=== PATIENT | male | born 1935 | race Caucasian/White ===

== ENCOUNTER → 2016-08-19 | Outpatient (CLI) | payer OTHER ==
[~2016-08-19] MED LIST: ASPI81TA28 PO; CLOP1TAB15 PO; COEN10CA5 PO; CRG125 PO; DOCU100C PO; FURO40TA3 PO; LEVO25TA5 PO; LISI2.5T5 PO; METO25TA56 PO; PANT40TA PO; SIMV10TA2 PO; SIMV20TA2 PO; WARF2TAB8 PO; WARF4TAB8 PO
[2016-08-19 13:27] LABS: BASO % 0.3 %; BASO ABS # 0.02 K/uL (0-0.2); COMPLETE YES; EOS % 2.3 %; HEMATOCRIT 40.3 % (42-52); IG% 0.3 %; LYMPH % 24.5 %; LYMPH ABS # 1.59 K/uL (1.2-3.4); MEAN CELL VOLUME 93.7 fL (80-100); MEAN CORPUSCULAR HEMOGLOBIN 31.2 pg (25-34); MEAN CORPUSCULAR HGB CONC 33.3 g/dl (32-36); MEAN PLATELET VOLUME 10.9 fL (7.4-10.4); MONO % 7.6 %; PLATELET COUNT 153 K/uL (130-400); WHITE BLOOD COUNT 6.49 K/uL (4.8-10.8)
[2016-08-19 13:50] LABS: ALB/GLOB RATIO 1.2 (0.9-2); ALKALINE PHOSPHATASE 87 U/L (45-117); ALT/SGPT 22 U/L (12-78); AST/SGOT 22 U/L (15-37); BLOOD UREA NITROGEN 14 mg/dl (7-18); BUN/CREATININE RATIO 16.8 (10-20); CALCIUM 8.2 mg/dl (8.5-10.1); CARBON DIOXIDE 26 mmol/L (21-32); CHLORIDE 108 mmol/L (98-107); CREATININE 0.85 mg/dl (0.60-1.40); GLUCOSE 99 mg/dl (70-99); HDL CHOLESTEROL 35 mg/dl; POTASSIUM 3.9 mmol/L (3.5-5.1); SODIUM 142 mmol/L (136-145)
[2016-08-19 14:17] LABS: CHOLESTEROL 152 mg/dl (0-200); CHOLESTEROL/HDL RATIO 4.3; LDL CHOLESTEROL CALCULATED 92 mg/dl; TRIGLYCERIDES 126 mg/dl (0-150); VERY LOW DENSITY LIPOPROT CALC 25 mg/dl
== END | disposition home or self-care (01) ==
LOC: C.LABMFLN 09:08
PROVIDERS: ATTEND Family Medicine
DX: I48.91 Unspecified atrial fibrillation (principal); E78.5 Hyperlipidemia, unspecified; E03.9 Hypothyroidism, unspecified

== ENCOUNTER 2016-10-17 08:26 | Emergency (ER) | payer OTHER ==
[~2016-10-17] VITALS: Ht 175.3 cm; Wt 80.6 kg
[~2016-10-17 08:26] MED LIST changes: -COEN10CA5 PO; -DOCU100C PO; -LEVO25TA5 PO; -METO25TA56 PO; -SIMV10TA2 PO; -WARF2TAB8 PO; -WARF4TAB8 PO
[2016-10-17 08:39] VITALS: TEMP 36.8; Ht 175.3 cm; Wt 80.6 kg
[2016-10-17 09:11] VITALS: O2SAT 98
[2016-10-17 09:22] LABS: BASO % 0.3 %; BASO ABS # 0.02 K/uL (0-0.2); COMPLETE YES; HEMATOCRIT 40.3 % (42-52); IG% 0.3 %; LYMPH % 20.9 %; LYMPH ABS # 1.33 K/uL (1.2-3.4); MEAN CELL VOLUME 91.8 fL (80-100); MEAN CORPUSCULAR HEMOGLOBIN 30.8 pg (25-34); MEAN CORPUSCULAR HGB CONC 33.5 g/dl (32-36); MEAN PLATELET VOLUME 10.8 fL (7.4-10.4); MONO % 8.3 %; NEUT % 68.2 %; PLATELET COUNT 137 K/uL (130-400); RED BLOOD COUNT 4.39 M/uL (4.7-6.1); WHITE BLOOD COUNT 6.37 K/uL (4.8-10.8)
[2016-10-17 09:36] LABS: INR 2.3 (0.9-1.1); PARTIAL THROMBOPLASTIN RATIO 1.4; PROTHROMBIN TIME (PATIENT) 25.7 SECONDS (9.0-12.0)
[2016-10-17 09:39] LABS: ALT/SGPT 21 U/L (12-78); BLOOD UREA NITROGEN 14 mg/dl (7-18); BUN/CREATININE RATIO 15.4 (10-20); CALCIUM 8.9 mg/dl (8.5-10.1); CARBON DIOXIDE 27 mmol/L (21-32); CHLORIDE 109 mmol/L (98-107); GLUCOSE 113 mg/dl (70-99); POTASSIUM 4.1 mmol/L (3.5-5.1); SODIUM 141 mmol/L (136-145)
[2016-10-17 09:44] LABS: ALKALINE PHOSPHATASE 88 U/L (45-117); AST/SGOT 21 U/L (15-37); CKMB/CK RATIO 2.1 (0-3.0)
--- NOTE | 2016-10-17 09:54 | DIAGNOSTIC IMAGING REPORT ---
CHEST ONE VIEW PORTABLE CLINICAL HISTORY: Fever. Chest pain. Sepsis. COMPARISON STUDY: Chest radiograph November 14, 2009. FINDINGS: There are median sternotomy wires, prosthetic cardiac valve and dual lead left subclavian pacer/AICD. There is a suspected cardiac stent. Moderate cardiomegaly is noted without evidence of pulmonary edema. There is mild left basilar opacity. No pneumothorax or pleural effusion is identified. IMPRESSION: 1. Mild left basilar opacity. Atelectasis is favored although consolidation could appear similar. Radiographic follow up is recommended. 2. Moderate cardiomegaly without evidence of pulmonary edema. Electronically signed by: Jer Cronin M.D. 10/17/2016 9:53 AM Dictated Date/Time: 10/17/2016 9:52 AM
--- NOTE | 2016-10-17 10:49 | EMERGENCY ROOM VISIT NOTE ---
History Report prepared by Paibe: Maral Russo Under the Supervision of: Dr. Viotr Garcia D.O. First contact with patient: 09:03 Chief Complaint: CHEST PAIN Stated Complaint: CHEST PAINS Nursing Triage Summary: Pt. reports chest discomfort that started yesterday. Reports having a heart history. Pacemaker/defibrillator in place. Pt. reports shortness of breath with activity, but states this is baseline. History of Present Illness The patient is an 81 year old male who presents to the Emergency Room with complaints of persistent chest pain that started around 1700 yesterday. He rates his current discomfort as a 2/10 and describes the pain as feeling "annoying". He admits to some shortness of breath with activity, but states this is his baseline. He denies any recent nausea or vomiting. The patient admits to an extensive cardiac history including previous stents, a valve replacement, a pacemaker and defibrillator. Source of History: patient Onset: 1700 yesterday Position: chest Symptom Intensity: 2/10 Timing: other (persistent) Associated Symptoms: + SOB, No nausea, No vomiting Review of Systems See HPI for pertinent positives & negatives. A total of 10 systems reviewed and were otherwise negative. Past Medical & Surgical Surgical Problems: (1) Heart valve replaced (2) History of cardiac pacemaker (3) History of heart artery stent Social History Smoking Status: Never Smoker Alcohol Use: none Drug Use: none Marital Status: Housing Status: lives with family Occupation Status: retired Current/Historical Medications Scheduled Aspirin (Aspirin Ec), 81 MG PO DAILY Coenzyme Q10 (Ubidecarenone) (Co Q 10), 10 MG PO DAILY Docusate Sodium (Stool Softener), 100 MG PO HS Furosemide (Lasix), 40 MG PO DAILY Levothyroxine Sodium (Levothyroxine Sodium), 25 MCG PO DAILY Metoprolol Tartrate (Lopressor) (Lopressor), 25 MG PO BID Pantoprazole (Protonix), 40 MG PO DAILY Simvastatin (Zocor), 10 MG PO QPM Warfarin Sod (Jantoven), 4 MG PO 5XWK Warfarin Sod (Jantoven), 2 MG PO 2XWK Allergies Coded Allergies: Dronedarone (Unverified Allergy, Unknown, UNKNOWN BY PATIENT, 10/17/16) WAS TOLD NEVER TO TAKE IT AGAIN BY MD Physical Exam Vital Signs Date Time Temp Pulse Resp B/P (MAP) Pulse Ox O2 Delivery O2 Flow Rate FiO2 10/17/16 10:35 70 15 112/74 95 Room Air 10/17/16 10:00 70 21 112/70 96 Room Air 10/17/16 09:33 70 22 111/73 98 Room Air 10/17/16 09:11 98 Room Air 10/17/16 09:04 98 Room Air 10/17/16 09:04 78 19 114/64 98 Room Air 10/17/16 08:41 98 Room Air 10/17/16 08:41 71 10/17/16 08:39 36.8 73 22 130/78 96 Room Air Physical Exam CONSTITUTIONAL/VITAL SIGNS: Reviewed / noted above. GENERAL: Non-toxic in appearance. INTEGUMENTARY: Warm, dry, and [place]. HEAD: Normocephalic. EYES: without scleral icterus or trauma. ENT/OROPHARYNX: clear and moist. LYMPHADENOPATHY/NECK: Is supple without lymphadenopathy or meningismus. RESPIRATORY: Lungs clear and equal. CARDIOVASCULAR: Regular rate and rhythm. GI/ABDOMEN: Soft and nontender. No organomegaly or pulsatile mass. No rebound or guarding. Normal bowel sounds. EXTREMITIES: Warm and well perfused. BACK: No CVA tenderness. NEUROLOGICAL: Intact without focal deficits. PSYCHIATRIC: normal affect. MUSCULOSKELETAL: Normally developed with good muscle tone. Medical Decision & Procedures ER Provider Diagnostic Interpretation: Radiology results as stated below per my review and radiologist interpretation: CHEST ONE VIEW PORTABLE CLINICAL HISTORY: Fever. Chest pain. Sepsis. COMPARISON STUDY: Chest radiograph November 14, 2009. FINDINGS: There are median sternotomy wires, prosthetic cardiac valve and dual lead left subclavian pacer/AICD. There is a suspected cardiac stent. Moderate cardiomegaly is noted without evidence of pulmonary edema. There is mild left basilar opacity. No pneumothorax or pleural effusion is identified. IMPRESSION: 1. Mild left basilar opacity. Atelectasis is favored although consolidation could appear similar. Radiographic follow up is recommended. 2. Moderate cardiomegaly without evidence of pulmonary edema. Electronically signed by: Jer Cronin M.D. 10/17/2016 9:53 AM Laboratory Results 10/17/16 08:42 Red Blood Count 4.39, Mean Corpuscular Volume 91.8, Mean Corpuscular Hemoglobin 30.8, Mean Corpuscular Hemoglobin Concent 33.5, Mean Platelet Volume 10.8, Neutrophils (%) (Auto) 68.2, Lymphocytes (%) (Auto) 20.9, Monocytes (%) (Auto) 8.3, Eosinophils (%) (Auto) 2.0, Basophils (%) (Auto) 0.3, Neutrophils # (Auto) 4.34, Lymphocytes # (Auto) 1.33, Monocytes # (Auto) 0.53, Eosinophils # (Auto) 0.13, Basophils # (Auto) 0.02 10/17/16 08:42 Test 10/17/16 08:42 White Blood Count 6.37 K/uL (4.8-10.8) Red Blood Count 4.39 M/uL (4.7-6.1) Hemoglobin 13.5 g/dL (14.0-18.0) Hematocrit 40.3 % (42-52) Mean Corpuscular Volume 91.8 fL (80-100) Mean Corpuscular Hemoglobin 30.8 pg (25-34) Mean Corpuscular Hemoglobin Concent 33.5 g/dl (32-36) Platelet Count 137 K/uL (130-400) Mean Platelet Volume 10.8 fL (7.4-10.4) Neutrophils (%) (Auto) 68.2 % Lymphocytes (%) (Auto) 20.9 % Monocytes (%) (Auto) 8.3 % Eosinophils (%) (Auto) 2.0 % Basophils (%) (Auto) 0.3 % Neutrophils # (Auto) 4.34 K/uL (1.4-6.5) Lymphocytes # (Auto) 1.33 K/uL (1.2-3.4) Monocytes # (Auto) 0.53 K/uL (0.11-0.59) Eosinophils # (Auto) 0.13 K/uL (0-0.5) Basophils # (Auto) 0.02 K/uL (0-0.2) RDW Standard Deviation 46.7 fL (36.4-46.3) RDW Coefficient of Variation 13.8 % (11.5-14.5) Immature Granulocyte % (Auto) 0.3 % Immature Granulocyte # (Auto) 0.02 K/uL (0.00-0.02) Prothrombin Time 25.7 SECONDS (9.0-12.0) Prothromb Time International Ratio 2.3 (0.9-1.1) Activated Partial Thromboplast Time 35.7 SECONDS (21.0-31.0) Partial Thromboplastin Ratio 1.4 Anion Gap 5.0 mmol/L (3-11) Est Creatinine Clear Calc Drug Dose 65.5 ml/min Estimated GFR () 93.2 Estimated GFR (Non- 80.4 BUN/Creatinine Ratio 15.4 (10-20) Calcium Level 8.9 mg/dl (8.5-10.1) Total Bilirubin 0.7 mg/dl (0.2-1) Direct Bilirubin 0.2 mg/dl (0-0.2) Aspartate Amino Transf (AST/SGOT) 21 U/L (15-37) Alanine Aminotransferase (ALT/SGPT) 21 U/L (12-78) Alkaline Phosphatase 88 U/L (45-117) Total Creatine Kinase 104 U/L (39-308) Creatine Kinase MB 2.2 ng/ml (0.5-3.6) Creatine Kinase MB Ratio 2.1 (0-3.0) Troponin I < 0.015 ng/ml (0-0.045) Total Protein 7.6 gm/dl (6.4-8.2) Albumin 3.9 gm/dl (3.4-5.0) Lipase 132 U/L (73-393) Laboratory results as stated above per my review. ECG Indication: chest pain Rate (beats per minute): 78 Rhythm: other (Atrial paced) Findings: PVC (Occasional PVC's), no acute ischemic change ED Course 0914: Previous medical records were reviewed. The patient was evaluated in room B8. A complete history and physical examination was performed. 1055: I reevaluated the patient. He is feeling better and resting comfortably. I discussed his results and discharge instructions and he verbalized complete understanding and agreement. Medical Decision the differential that was considered includes acute myocardial infarction, acute coronary syndrome, myocarditis, pericarditis, pericardial effusions / tamponade, esophageal perforation, thoracic aortic dissection, pulmonary embolism, pneumonia, pneumothorax, pancreatitis, shingles, acute cholecystitis, perforated abdominal viscus. This is an 81-year-old male who presents to the ED with a chief complaint of some discomfort in his chest. He describes it as an annoyance. Denies any associated symptoms such as shortness of breath, nausea, palpitations or fevers. He states that his symptoms started around 4 PM yesterday. He awoke with it this morning around 4 AM. He states that he does have history of [place] in the past but it was associated with chest pain that was different than today's symptoms. The patient reports having a pacemaker/defibrillator. He denies any other symptoms. His vital signs are normal. His physical exam was normal. Blood work included a normal CBC. INR is 2.3. He is on Coumadin. Troponin was negative. Complete metabolic panel is normal. Chest x-ray did not show acute disease. There are no clinical findings to suggest pneumonia. The patient was told the results. He is felt to be stable for discharge. Medication Reconcilliation Current Medication List: was personally reviewed by me Blood Pressure Screening Patient's blood pressure: Normal blood pressure Blood pressure disposition: Did not require urgent referral Impression Primary Impression: Retrosternal discomfort Scribe Attestation The scribe's documentation has been prepared under my direction and personally reviewed by me in its entirety. I confirm that the note above accurately reflects all work, treatment, procedures, and medical decision making performed by me. Departure Information Dispostion Home / Self-Care Referrals Aissatou Martinez M.D. (PCP) Patient Instructions My [facility] Additional Instructions Follow-up with your doctor for further care and evaluation in 1-2 days. Return to the emergency department for worsening or new symptoms or any concerns. You have been examined and treated today on an emergency basis only. This is not a substitute for, or an effort to provide, complete comprehensive medical care. It is impossible to recognize and treat all injuries or illnesses in a single emergency department visit. It is therefore important that you follow up closely with your doctor. Call as soon as possible for an appointment.
[2016-10-17] MEDS ORDERED: SIMV10TA2 PO (10:53)
[2016-10-17] MEDS ORDERED: COEN10CA5 PO (10:53)
[2016-10-17] MEDS ORDERED: METO25TA56 PO (10:53)
[2016-10-17] MEDS ORDERED: LEVO25TA5 PO (10:53)
[2016-10-17] MEDS ORDERED: WARF4TAB8 PO (10:55)
[2016-10-17] MEDS ORDERED: WARF2TAB8 PO (10:55)
[2016-10-17] MEDS ORDERED: DOCU100C PO (10:55)
[2016-10-17 11:14] VITALS: BP 117/73; PULSE 70; O2SAT 96
== END 2016-10-17 11:10 | disposition home or self-care (01) ==
LOC: C.EDB 08:31
DX: R07.2 Precordial pain (principal); I25.2 Old myocardial infarction; Z95.5 Presence of coronary angioplasty implant and graft; Z95.2 Presence of prosthetic heart valve; Z95.0 Presence of cardiac pacemaker; Z95.810 Presence of automatic (implantable) cardiac defibrillator; Z79.01 Long term (current) use of anticoagulants; Z79.82 Long term (current) use of aspirin

== ENCOUNTER → 2017-04-23 | Outpatient (CLI) | payer OTHER ==
[~2017-04-23] MED LIST changes: -CLOP1TAB15 PO; +COEN10CA5 PO; -CRG125 PO; +DOCU100C PO; +LEVO25TA5 PO; -LISI2.5T5 PO; +METO25TA56 PO; +SIMV10TA2 PO; -SIMV20TA2 PO; +WARF2TAB8 PO; +WARF4TAB8 PO
== END | disposition home or self-care (01) ==
LOC: C.LABMFLN 07:03
PROVIDERS: ATTEND Family Medicine
DX: E03.9 Hypothyroidism, unspecified (principal)

== ENCOUNTER → 2017-09-15 | Outpatient (CLI) | payer OTHER ==
[2017-09-15 12:54] LABS: BASO % 0.3 %; BASO ABS # 0.02 K/uL (0-0.2); EOS % 3.2 %; EOS ABS # 0.23 K/uL (0-0.5); HEMATOCRIT 41.8 % (42-52); HEMOGLOBIN 13.2 g/dL (14.0-18.0); IG# 0.02 K/uL (0.00-0.02); LYMPH % 23.2 %; LYMPH ABS # 1.67 K/uL (1.2-3.4); MEAN CELL VOLUME 90.5 fL (80-100); MEAN CORPUSCULAR HEMOGLOBIN 28.6 pg (25-34); MEAN CORPUSCULAR HGB CONC 31.6 g/dl (32-36); MEAN PLATELET VOLUME 10.8 fL (7.4-10.4); MONO % 7.4 %; MONO ABS # 0.53 K/uL (0.11-0.59); NEUT % 65.6 %; NEUT ABS # 4.74 K/uL (1.4-6.5); PLATELET COUNT 176 K/uL (130-400); RED CELL DISTRIBUTION WIDTH SD 49.5 fL (36.4-46.3); WHITE BLOOD COUNT 7.21 K/uL (4.8-10.8)
[2017-09-15 13:02] LABS: INR 2.6 (0.9-1.1)
[2017-09-15 13:16] LABS: ALBUMIN 4.4 gm/dl (3.4-5.0); ALKALINE PHOSPHATASE 103 U/L (45-117); ALT/SGPT 24 U/L (12-78); AST/SGOT 24 U/L (15-37); BLOOD UREA NITROGEN 15 mg/dl (7-18); CARBON DIOXIDE 29 mmol/L (21-32); CHOLESTEROL 124 mg/dl (0-200); CREATININE 0.96 mg/dl (0.60-1.40); GLUCOSE 99 mg/dl (70-99); LDL CHOLESTEROL CALCULATED 72 mg/dl; SODIUM 138 mmol/L (136-145); TOTAL PROTEIN 8.3 gm/dl (6.4-8.2)
== END | disposition home or self-care (01) ==
LOC: C.LABMFLN 07:17
PROVIDERS: ATTEND Family Medicine
DX: I25.10 Atherosclerotic heart disease of native coronary artery without angina pectoris (principal); I48.91 Unspecified atrial fibrillation; E78.5 Hyperlipidemia, unspecified

== ENCOUNTER 2019-01-05 09:31 | Inpatient (IN) ==
--- NOTE | 2018-12-29 16:34 | PAT Medication Instructions ---
Medication Instructions Date of Service December 29, 2018 Home Medications Medication Instructions Recorded warfarin 2 mg tablet 2 mg PO DAILY #30 tab 08/03/18 warfarin 2 mg tablet 2 mg PO DAILY furosemide 40 mg tablet 40 mg PO QAM coenzyme Q10 [Co Q-10] 10 mg PO QAM docusate sodium [Stool Softener] 100 mg PO UD PRN levothyroxine 25 mcg PO QAM metoprolol succinate 100 mg PO QDL pantoprazole 40 mg PO QAM sacubitril-valsartan [Entresto] 1 tab PO BID simvastatin 10 mg PO HS ASK your prescriber and surgeon warfarin 2 mg tablet 2 mg PO DAILY STOP taking 2 weeks before surgery (or as soon as possible if surgery is within 2 weeks) coenzyme Q10 [Co Q-10] 10 mg PO QAM DO NOT take the morning of surgery furosemide 40 mg tablet 40 mg PO QAM docusate sodium [Stool Softener] 100 mg PO UD PRN sacubitril-valsartan [Entresto] 1 tab PO BID Take morning of surgery With a small sip of water, OTHERWISE NOTHING TO EAT OR DRINK AFTER MIDNIGHT: levothyroxine 25 mcg PO QAM metoprolol succinate 100 mg PO QDL pantoprazole 40 mg PO QAM Take evening before surgery docusate sodium [Stool Softener] 100 mg PO UD PRN (if needed) sacubitril-valsartan [Entresto] 1 tab PO BID simvastatin 10 mg PO HS Other Notes If you have any questions please call us at [phone] or [phone] or [phone] or [phone]
--- NOTE | 2018-12-30 13:56 | Anesthesiology Consultation ---
Date of Service December 30, 2018 Assessment & Plan (1) Encounter for pre-operative examination: - Awaiting review preop testing (labs, EKG). - Patient scheduled to see cardiology 01/03 for routine office visit. Cardiology is attempting to make visit a preop evaluation ([facility] cardiology). Chart Review Chart Review: Patient seen in Pre Admission Testing History Surgery Operation Date: 01/05/19 12:45 Proposed Procedures p Right Total Knee Arthroplasty - Arnoldo Paez MD Height/Weight Height: 5 ft 8 in Weight: 80.3 kg Allergies Allergy/AdvReac Type Severity Reaction Status Date / Time dronedarone AdvReac Unknown ? heart Verified 12/30/18 14:54 racing Medications Home Medications Medication Instructions Recorded Confirmed Last Taken warfarin 2 mg tablet 2 mg PO DAILY #30 tab 08/03/18 12/27/18 Unknown furosemide 40 mg tablet 40 mg PO QAM tab 10/21/18 12/27/18 Unknown coenzyme Q10 [Co Q-10] 10 mg PO QAM 12/27/18 12/27/18 Unknown docusate sodium [Stool Softener] 100 mg PO UD PRN 12/27/18 12/27/18 Unknown levothyroxine 25 mcg PO QAM 12/27/18 12/27/18 Unknown metoprolol succinate 100 mg PO QDL 12/27/18 12/27/18 Unknown pantoprazole 40 mg PO QAM 12/27/18 12/27/18 Unknown sacubitril-valsartan [Entresto] 1 tab PO BID 12/27/18 12/27/18 Unknown simvastatin 10 mg PO HS 12/27/18 12/27/18 Unknown Past Medical History Medical History Anemia Atrial fibrillation Atrial flutter CAD (coronary artery disease) s/p CABG (? 1993, 2013) CHF, chronic Cardiac defibrillator in place PPM + dual chamber ICD implanted 2012/[facility]/last checked 10/21/18 History of heart attack multiple History of skin cancer s/p resection History of small bowel obstruction s/p surgical repair Hyperlipidemia Hypothyroidism Interstitial lung disease Ischemic cardiomyopathy Mitral regurgitation s/p MVR Osteoarthritis Poor historian Exercise / Class Metabolic Activity III < 4 Walking/Shop/Light housework Past Surgical History Surgical History History of appendectomy History of bronchoscopy History of cardiac cath History of cataract surgery R/L History of cholecystectomy History of colonoscopy History of esophagogastroduodenoscopy (EGD) History of heart bypass surgery CABG History of intestinal surgery 2/2 small bowel obstruction History of mitral valve replacement Past Anesthesia History No Hx of Anesthesia Complications (except PONV) and No Family Hx of Anesthesia Complications History of PONV No Hx of Motion Sickness and History of PONV (except PONV*) Social History Smoking Status: Never smoker Do You Dip or Chew Tobacco: No Hx Alcohol Use: No Hx Substance Use: No substance use type: does not use Review of Systems Patient denies chest pain, shortness of breath, cough, wheezing, palpitations. Physical Exam Vital Signs VITALS BP 106/74 P 73 TEMP 97.5 SP02 98%RA RESP 16 PHYSICAL Full neck and c-spine range of motion. Full TMJ range of motion. TMD 3.5 finger breaths Mallampati Score 1 Dentition: full dentures upper/lower Lungs: clear throughout to auscultation Cardiac: regular rate and rhythm, no murmurs noted Spine: normal Carotid arteries: negative bruit Extremities: no edema Testing Laboratory Results 12/30/18 14:05 Urine Color Yellow 12/30/18 14:05 Urine Appearance Clear (Clear) 12/30/18 14:05 Urine pH 5.5 (4.5-7.5) 12/30/18 14:05 Ur Specific [place] 1.014 (1.000-1.030) 12/30/18 14:05 Urine Protein Negative (Negative) 12/30/18 14:05 Urine Glucose (UA) Negative (Negative) 12/30/18 14:05 Urine Ketones Negative (Negative) 12/30/18 14:05 Urine Nitrite Negative (Negative) 12/30/18 14:05 Ur Leukocyte Esterase Negative (Negative) 12/30/18 14:05 Chest X-Ray Date: 08/22/18 Cardiomegaly with prosthetic MV. Two lead pacemaker. No significant congestive changes. No consolidation/effusion. Echocardiogram Date: 07/27/18 EF 23%. Apical inferior septum is dyskinetic. Apical, lateral apical anterior and apical inferior segments are akinetic. The rest of LV is HK. Severe LAE. + Bioprosthetic MV- no significant gradient across the valve. Mild intra-valvular MV prosthesis regurgitation. Mild TR. + diastolic dysfunction. Stress Test Date: 07/27/18 Type: nuclear (Lexiscan) Lexiscan nuclear cardiac stress test positive for myocardial scar. Large size fixed defect present involving distal half of the septum/apex/apical anterior/mid anterior/mid anterolateral/apical lateral and apical inferior s egments. Defect along with wall motion abnormality in corresponding segments suggests previous AK. Stress EKG suggesting ischemia but Lexiscan nuclear stress test negative for ischemia. Moderate LVD. LVEF 22% in post Lexiscan study. Other Testing Pacer/ICD check: 10/21/18: Dual-chamber ICD: "His ICD is functioning well with good battery voltage and a projected longevity of 2.2 years. He is pacing almost all of the time in the ventricle (97%) with an atrial fibrillation burden of 100%. His overall heart rate profile is adequate. Pacing and sensing characteristics are good." per cardiology office visit.
[2018-12-30 14:45] LABS: Basophils # (auto) 0.02 K/uL (0-0.2); Basophils % (auto) 0.3 %; Eosinophils # (auto) 0.21 K/uL (0-0.5); Eosinophils % (auto) 3.5 %; Hematocrit (blood only) 41.9 % (42-52); Hemoglobin 13.5 g/dL (14.0-18.0); Immature Granulocytes # (auto) 0.01 K/uL (0.00-0.02); Immature Granulocytes % (auto) 0.2 %; Lymphocytes # (auto) 1.38 K/uL (1.2-3.4); Mean Corpuscular Hgb Conc 32.2 g/dL (32-36); Mean Corpuscular Volume 96.1 fL (80-100); Mean Platelet Volume 10.7 fL (7.4-10.4); Monocytes # (auto) 0.45 K/uL (0.11-0.59); Monocytes % (auto) 7.5 %; Neutrophils # (auto) 3.92 K/uL (1.4-6.5); Neutrophils % (auto) 65.5 %; Platelet Count 154 K/uL (130-400); RDW Coefficient of Variation 13.5 % (11.5-14.5); RDW Standard Deviation 47.3 fL (36.4-46.3); Red Blood Count 4.36 M/uL (4.7-6.1); White Blood Count 5.99 K/uL (4.8-10.8)
[2018-12-30 14:51] LABS: Appearance Urine Clear (Clear); Bilirubin Urine Negative (Negative); Blood Urine Negative (Negative); Color Urine Yellow; Glucose Urine UA Negative (Negative); Ketones Urine Negative (Negative); Leukocyte Esterase Urine Negative (Negative); Nitrite Urine Negative (Negative); Protein Urine Negative (Negative); Specific Gravity Urine 1.014 (1.000-1.030); Urobilinogen Urine Negative (Negative); pH Urine 5.5 (4.5-7.5)
[2018-12-30 14:53] LABS: BUN Creatinine Ratio 16.5 (10-20); Calcium 8.9 mg/dl (8.5-10.1); Creatinine Clr Calc Pharmacy 47.1 ml/min; Est GFR (African American) 66.9; Est GFR (Non-African American) 57.7; Potassium 4.8 mmol/L (3.5-5.1)
[2018-12-30 14:55] LABS: Estimated Average Glucose 128 mg/dl; Hemoglobin A1C 6.1 % (4.5-5.6)
[2018-12-30 14:56] LABS: INR 2.5 (0.9-1.1); Partial Thromboplastin Ratio 1.3; Partial Thromboplastin Time 34.2 Seconds (21.0-31.0)
--- NOTE | 2019-01-02 08:57 | History & Physical Report ---
Date of Service January 02, 2019 Assessment & Plan (1) Osteoarthritis of right knee: Continued right knee pain with significant osteoarthritis of his right knee. Treatment options discussed. Risks, benefits and alternatives to surgery including but not limited to infection, DVT, pain, stiffness, need for revision surgery, damage to blood vessels, damage to nerves, PE, , were discussed with the patient and they wish to proceed. Plan will be for right non block total knee arthroplasty at [facility] on 01/05/19. Patient has a significant cardiac history and will need preop cardiac clearance. He is anticoagulated on Warfarin, will resume post operatively. 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 Will plan on HH or OPPT upon discharge from the hospital. All questions asnwered. He will follow up post operatively. Osteoarthritis type: primary Qualified Code(s): M17.11 - Unilateral primary osteoarthritis, right knee History of Present Illness Chief Complaint: Right knee pain Primary Care Provider: Aissatou Martinez MD Patient is an 83 year old male with PMHx significant for mitral regurg s/p valve replacement, a-fib, CHF, pacemaker and defibrillator, OA, anticoagulated on warfarin, asthma, hypothyroidism who presents with longstanding right knee pain. Previously has had left knee replacement several years ago. He has failed conservative measures including cortisone injections. Unable to take NSAIDs. Last injection was about 6 mos ago with minimal relief. He would like to proceed with right knee replacement. Patient denies headaches, sweats, fevers, chills, double vision, blurred vision, cough, sore throat, dysphagia, chest pain, sob, wheezing, n/v/d/c, numbness, tingling, fatigue, urinary symptoms, mood disorders. ROS positive for right knee pain and stiffness. Allergies Allergy/AdvReac Type Severity Reaction Status Date / Time dronedarone AdvReac Unknown ? heart Verified 12/30/18 14:54 racing Home Medications Home Medications Medication Instructions Recorded Confirmed Type warfarin 2 mg tablet 2 mg PO DAILY #30 tab 08/03/18 12/27/18 Rx furosemide 40 mg tablet 40 mg PO QAM tab 10/21/18 12/27/18 History coenzyme Q10 [Co Q-10] 10 mg PO QAM 12/27/18 12/27/18 History docusate sodium [Stool Softener] 100 mg PO UD PRN 12/27/18 12/27/18 History levothyroxine 25 mcg PO QAM 12/27/18 12/27/18 History metoprolol succinate 100 mg PO QDL 12/27/18 12/27/18 History pantoprazole 40 mg PO QAM 12/27/18 12/27/18 History sacubitril-valsartan [Entresto] 1 tab PO BID 12/27/18 12/27/18 History simvastatin 10 mg PO HS 12/27/18 12/27/18 History Past Med/Surg History Medical History Anemia Atrial fibrillation Atrial flutter CAD (coronary artery disease) s/p CABG (? 1993, 2013) CHF, chronic Cardiac defibrillator in place PPM + dual chamber ICD implanted 2012/[facility]/last checked 10/21/18 History of heart attack multiple History of skin cancer s/p resection History of small bowel obstruction s/p surgical repair Hyperlipidemia Hypothyroidism Interstitial lung disease Ischemic cardiomyopathy Mitral regurgitation s/p MVR Osteoarthritis Poor historian Surgical History History of appendectomy History of bronchoscopy History of cardiac cath History of cataract surgery R/L History of cholecystectomy History of colonoscopy History of esophagogastroduodenoscopy (EGD) History of heart bypass surgery CABG History of intestinal surgery 2/2 small bowel obstruction History of mitral valve replacement Social History Preferred Language: Slovenian Communication Ability: Effective 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 Beliefs That Will Affect Care: None marital status: Current Living Situation: Spouse Other Information That Helps Us Care for You: No Feels Safe at Home: Yes Smoking Status: Never smoker Do You Dip or Chew Tobacco: No ; Hx Alcohol Use: No Hx Substance Use: No Review of Systems All systems reviewed & are unremarkable except as noted in HPI & below Physical Exam Constitutional: well developed and well nourished; no acute distress Eyes: PERRL, conjunctivae normal, anicteric sclerae ENMT: external ear and nose normal, oropharynx normal Neck: trachea midline, no thyromegaly Respiratory: normal respiratory effort, lungs clear to auscultation Cardiovascular: RRR, no murmur, no edema Musculoskeletal: Right knee-Mild effusion, tenderness medial joint line. Moderate crepitation with ROM. ROM is 5-100 degrees. Positive Jadiel's. Stable to valgus and varus stress tests Skin: no rashes, warm and dry Neurologic: patellar DTR's 2+ bilat, sensation intact Psychiatric: A+Ox3, euthymic affect Results & Data Laboratory Results Lab Results 12/30/18 12/30/18 12/30/18 Range/Units 14:05 14:05 14:05 WBC 5.99 (4.8-10.8) K/uL RBC 4.36 L (4.7-6.1) M/uL Hgb 13.5 L (14.0-18.0) g/dL Hct 41.9 L (42-52) % MCV 96.1 (80-100) fL MCH 31.0 (25-34) pg MCHC 32.2 (32-36) g/dL RDW Std Deviation 47.3 H (36.4-46.3) fL RDW Coeff of Silvia 13.5 (11.5-14.5) % Plt Count 154 (130-400) K/uL MPV 10.7 H (7.4-10.4) fL Immature Gran % (Auto) 0.2 % Neut % (Auto) 65.5 % Lymph % (Auto) 23.0 % [place] % (Auto) 7.5 % Eos % (Auto) 3.5 % Baso % (Auto) 0.3 % Immature Gran # (Auto) 0.01 (0.00-0.02) K/uL Neut # (Auto) 3.92 (1.4-6.5) K/uL Lymph # (Auto) 1.38 (1.2-3.4) K/uL [place] # (Auto) 0.45 (0.11-0.59) K/uL Eos # (Auto) 0.21 (0-0.5) K/uL Baso # (Auto) 0.02 (0-0.2) K/uL PT 24.0 H (9.0-12.0) Seconds INR 2.5 H (0.9-1.1) APTT 34.2 H (21.0-31.0) Seconds PTT Ratio 1.3 Sodium 137 (136-145) mmol/L Potassium 4.8 (3.5-5.1) mmol/L Chloride 104 (98-107) mmol/L Carbon Dioxide 30 (21-32) mmol/L Anion Gap 3.0 (3-11) BUN 19 H (7-18) mg/dl Creatinine 1.17 (0.6-1.4) mg/dl Est Cr Clr Drug Dosing 47.1 ml/min Est GFR ( Amer) 66.9 Est GFR (Non-Af Amer) 57.7 BUN/Creatinine Ratio 16.5 (10-20) Glucose 112 H (70-99) mg/dl Estimat Average Glucose mg/dl Hemoglobin A1c (4.5-5.6) % Calcium 8.9 (8.5-10.1) mg/dl Albumin 4.0 (3.4-5.0) gm/dl Urine Color Urine Appearance (Clear) Urine pH (4.5-7.5) Ur Specific [place] (1.000-1.030) Urine Protein (Negative) Urine Glucose (UA) (Negative) Urine Ketones (Negative) Urine Blood (Negative) Urine Nitrite (Negative) Urine Bilirubin (Negative) Urine Urobilinogen (Negative) Ur Leukocyte Esterase (Negative) Blood Type Antibody Screen 12/30/18 12/30/18 12/30/18 Range/Units 14:05 14:05 14:05 WBC (4.8-10.8) K/uL RBC (4.7-6.1) M/uL Hgb (14.0-18.0) g/dL Hct (42-52) % MCV (80-100) fL MCH (25-34) pg MCHC (32-36) g/dL RDW Std Deviation (36.4-46.3) fL RDW Coeff of Silvia (11.5-14.5) % Plt Count (130-400) K/uL MPV (7.4-10.4) fL Immature Gran % (Auto) % Neut % (Auto) % Lymph % (Auto) % [place] % (Auto) % Eos % (Auto) % Baso % (Auto) % Immature Gran # (Auto) (0.00-0.02) K/uL Neut # (Auto) (1.4-6.5) K/uL Lymph # (Auto) (1.2-3.4) K/uL [place] # (Auto) (0.11-0.59) K/uL Eos # (Auto) (0-0.5) K/uL Baso # (Auto) (0-0.2) K/uL PT (9.0-12.0) Seconds INR (0.9-1.1) APTT (21.0-31.0) Seconds PTT Ratio Sodium (136-145) mmol/L Potassium (3.5-5.1) mmol/L Chloride (98-107) mmol/L Carbon Dioxide (21-32) mmol/L Anion Gap (3-11) BUN (7-18) mg/dl Creatinine (0.6-1.4) mg/dl Est Cr Clr Drug Dosing ml/min Est GFR ( Amer) Est GFR (Non-Af Amer) BUN/Creatinine Ratio (10-20) Glucose (70-99) mg/dl Estimat Average Glucose 128 mg/dl Hemoglobin A1c 6.1 H (4.5-5.6) % Calcium (8.5-10.1) mg/dl Albumin (3.4-5.0) gm/dl Urine Color Yellow Urine Appearance Clear (Clear) Urine pH 5.5 (4.5-7.5) Ur Specific [place] 1.014 (1.000-1.030) Urine Protein Negative (Negative) Urine Glucose (UA) Negative (Negative) Urine Ketones Negative (Negative) Urine Blood Negative (Negative) Urine Nitrite Negative (Negative) Urine Bilirubin Negative (Negative) Urine Urobilinogen Negative (Negative) Ur Leukocyte Esterase Negative (Negative) Blood Type A Positive Antibody Screen NEGATIVE Diagnostic Findings Right [id number] medial compartment with periarticular osteophyte formation and subchondral sclerosis. Spurring and joint space narrowing PF joint.
[~2019-01-05 09:31] MED LIST changes: +ACETAMINOPHEN 500 MG TAB PO SCH; -ASPI81TA28 PO; +BUPIVACAINE 0.5 % 5 MG/1 ML PF 10ML VIAL ONE; +CEFAZOLIN 2000MG 2,000 MG/15 ML SYR IV SCH; -COEN10CA5 PO; +CeleBREX 200 MG CAP PO SCH; -DOCU100C PO; +FAMOTIDINE 20 MG TAB PO SCH; -FURO40TA3 PO; +GABAPENTIN 300 MG CAP PO SCH; -LEVO25TA5 PO; -METO25TA56 PO; +METOCLOPRAMIDE HCL 10 MG TABLET PO SCH; +OXYCODONE HCL 10 MG TABCR (OXYCONTIN) PO SCH; -PANT40TA PO; +ROPIVACAINE 0.5% HCL/PF 150 MG, BUPIVACAINE 0.5% MPF 30 ML, EPINEPHrine 30MG/30ML (OR U... INSTIL SCH; -SIMV10TA2 PO; -WARF2TAB8 PO; -WARF4TAB8 PO; +dexAMETHasone 4 MG TAB PO SCH
[2019-01-05] MEDS: LR 500ML BOLUS, THEN 15ML/HR IV SCH (10:20)
[2019-01-05] MEDS ORDERED: PROPOFOL IV EMULSION 10 MG/ML 20 ML VIAL IV ONE ×2 (10:27→13:17)
[2019-01-05] MEDS ORDERED: ONDANSETRON INJ 2 MG/ML 2 ML VIAL ONE (10:27)
[2019-01-05] MEDS ORDERED: LIDOCAINE HCL 2% 2 ML VIAL/AMP(20MG/ML) INFIL ONE (10:27)
[2019-01-05] MEDS ORDERED: DEXAMETHASONE SOD INJ 4 MG/ML VIAL ONE (10:27)
[2019-01-05] MEDS ORDERED: fentaNYL citrate 100 MCG/2 ML VIAL ONE (10:27)
[2019-01-05] MEDS ORDERED: MIDAZOLAM HCL 1 MG/ML 2ML VIAL ONE (10:27)
[2019-01-05 10:31] LABS: INR 1.2 (0.9-1.1); Partial Thromboplastin Time 26.5 Seconds (21.0-31.0); Prothrombin Time 11.8 Seconds (9.0-12.0)
--- NOTE | 2019-01-05 10:59 | History & Physical Bridge Note ---
Date of Service January 05, 2019 History & Physical Bridge Note I have examined the patient, reviewed the History & Physical and in the interval since the performance of the History & Physical I have noted the following changes of clinical significance: no changes noted
[2019-01-05] MEDS ORDERED: ATROPINE SULFATE 0.1 MG/ML 10ML SYR IV PRN (11:16)
[2019-01-05] MEDS ORDERED: ONDANSETRON INJ 2 MG/ML 2 ML VIAL IV PRN ×2 (11:16→15:46)
[2019-01-05] MEDS ORDERED: fentaNYL citrate 100 MCG/2 ML VIAL IV PRN (11:16)
[2019-01-05] MEDS ORDERED: ePHEDrine sulfate 50 MG/ML AMP IV PRN (11:16)
[2019-01-05] MEDS ORDERED: BACITRACIN INJ 50,000 UNIT VIAL ONE (11:44)
[2019-01-05] MEDS ORDERED: ORTHO JOINT ANESTHETIC ONE (11:44)
[2019-01-05] MEDS ORDERED: PHENYLEPHRINE 100MCG/ML 5ML SYR ONE (12:38)
--- NOTE | 2019-01-05 13:34 | Operative Report ---
Post Operative Report Pre & Post Diagnosis Operation Date: 01/05/19 12:15 Pre-Op Diagnosis: Right Knee Osteoarthritis Post-Op Diagnosis: Right Knee Osteoarthritis I identified the patient and participated in the time-out.: Yes Procedure Operation Date: 01/05/19 12:15 Actual Procedures p Right Total Knee Arthroplasty(Right) - Arnoldo Paez MD Surgeon Arnoldo Paez MD Weight Clerk Lexa Pastrana PA-C Estimated Blood Loss 20 Findings Consistent with Post-Op Diagnosis Specimens Bone and tissue Drains 2 Hemovac Anesthesia Type MAC Spinal Regional Complications none Disposition Accompanied Patient To Recovery: No Disposition: Recovery Room Indications Patient is an 83-year-old male long-standing arthritic change the right knee. He is [id number] medial compartment. Is failed conservative measures, injection, anti-inflammatories and rehab. He was to proceed with a right total knee arthroplasty. Description of Procedure Risks benefits and alternatives of surgery including but not limited to infection, DVT, pain, stiffness, need for surgery, damage to blood vessels, damage to nerves or risks of anesthesia were discussed with the patient and they wished to proceed. The patient was identified and the laterality was confirmed and marked. They received a preoperative antibiotic as well as a spinal anesthetic and an abductor canal block. A well-padded tourniquet was applied and then the limb was prepped and draped in standard manner with ChloraPrep. The limb was exsanguinated and the tourniquet was inflated. I made a standard anterior incision. I sharply incised the skin then utilized Bovie electrocautery as well as the aqua mantis to achieve hemostasis. I made a medial parapatellar arthrotomy and mobilized the patella laterally. I then excised the anterior horns of the medial and lateral meniscus as well as the infrapatellar fat pad. I elevated a portion of the MCL off of the tibia. I drilled centrally into the femoral canal and then placed a alignment ariana into the femur. I then placed a 5 valgus guide into position. I made my distal cut. I then pinned into place the femoral sizing guide and determined my femoral size. Adjustments were made as necessary to ensure proper rotation and that we would not notch the femur. I then pinned into place the 5 in 1 femoral cutting guide. I made my anterior, posterior and chamfer cuts. I then excised the cruciates and the remaining portions of the menisci. I then pinned into place a extra medullary tibial cutting guide. I then made my tibial resection. I then pinned into place the tibial plate a utilizing alignment ariana to confirm rotation. I then cut for the post. Utilizing a lamina wordpress developer and I then removed posterior osteophytes off the femur. I then placed a trial femur into position and cut for the trochlear component. I then sequentially trialed to size the polyethylene until there was good soft tissue balancing and range of motion. I then prepared the patella with a freehand cut utilizing sagittal saw. I sized and drilled for the patella. There was good tracking to the patella no lateral release was needed. All the trial components were removed. The deep tissues were anesthetized with an ortho mix solution. Then with Simplex HV with gentamicin cement, I cemented my definitive components. Definitive components, Mcdowell and Nephew Adele 2: Femur 7 Tibia 7 Poly 9 Patella 32 oval A betadine soak was performed. A deep drain was placed. The arthrotomy was closed with interrupted #1 Vicryl suture subcutaneous tissue was closed with interrupted 2-0 Vicryl suture. The skin was closed with with suzanne. A Prevena wound VAC was placed. A Silverlon was placed. Sterile dressings were applied. All needle and sponge counts were correct at the end of the procedure patient was transferred to the PACU in stable condition without apparent complication. The PA-C was necessary for assistance with procedure for assistance in positioning, prepping, draping, retraction and closure. I attest to the content of the Intraoperative Record and any orders documented therein. Any exceptions are noted below.
--- NOTE | 2019-01-05 14:40 | XRay Report ---
XR knee RT 1 or 2V routine HISTORY: 83 years-old Male Surgical Post Op right knee total joint arthroplasty. COMPARISON: Knee radiographs 10/21/2009 TECHNIQUE: 2 views of the right knee FINDINGS: Right knee total joint arthroplasty and patella resurfacing demonstrates satisfactory alignment. Ther e is satisfactory alignment without acute fracture. Surgical clips project over the medial tissues of the lower leg. Anterior midline skin suzanne are noted along with expected postsurgical soft tissue swelling and deep tissue air with surgical drainage catheter in place. IMPRESSION: Satisfactory alignment of the right knee total joint arthroplasty. The above report was generated using voice recognition software. It may contain grammatical, syntax o r spelling errors. Electronically signed by: Ameya Burkett M.D. 01/05/2019 2:39 PM
[2019-01-05] MEDS ORDERED: DOCUSATE SODIUM 100 MG CAP PO PRN (15:46)
[2019-01-05] MEDS ORDERED: BISACODYL 10 MG SUPP PR PRN (15:46)
[2019-01-05] MEDS ORDERED: SODIUM CHLORIDE 0.9% 1000ML 1,000 ML IV SCH (15:46)
[2019-01-05] MEDS ORDERED: METOCLOPRAMIDE HCL INJ 5 MG/ML 2 ML VIAL IV PRN (15:46)
[2019-01-05] MEDS ORDERED: HYDROmorphone INJ 0.5 MG/0.5 ML SYR IV PRN (15:46)
[2019-01-05] MEDS ORDERED: NALOXONE HCL 0.4 MG/1 ML VIAL/CARP IV PRN (15:46)
[2019-01-05] MEDS ORDERED: TAMSULOSIN HCL 0.4 MG CAP PO PRN (15:46)
[2019-01-05] MEDS ORDERED: MAGNESIUM HYDROXIDE SUSP 30 ML UDC PO PRN (15:46)
--- NOTE | 2019-01-05 16:10 | Hospitalist Consultation ---
Date of Consultation January 05, 2019 Assessment & Plan (1) Osteoarthritis of right knee: (2) S/P total knee replacement: - Pain management, bowel regimen and DVT ppx per the primary team - PT/OT on board (3) Chronic systolic CHF (congestive heart failure): - Caution with fluid overload in the setting of surgery with hx of CHF - Stop IVFs, tolerating PO intake without difficulty. - Continue lasix 40 mg QAM starting tomorrow (4) Ischemic cardiomyopathy: - Continue metoprolol succinate 100 mg PO QDL - BP currently 108/61, monitor shift vitals and may need to decrease the morning dose - Cont Entresto 24/26 mg 1 tab BID - HH diet - ICD in place (5) CAD (coronary artery disease): - Continue statin, metoprolol as above. No aspirin therapy currently (6) S/P CABG (coronary artery bypass graft): (7) S/P coronary artery stent placement: (8) Atrial fibrillation: - Permanent, ICD in place. - Metoprolol for rate control - continue coumadin for stroke risk reduction once stable from a surgical standpoint, likely within 24 hours. (9) Mitral regurgitation: - Noted, s/p MVP and valve replacement. (10) S/P mitral valve replacement: (11) S/P ICD (internal cardiac defibrillator) procedure: - Follows with Dr. Britt as outpatient, pt may need biventricular ICD upgrade per cardiology records in the future. 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 He reports this as resolved. (15) DVT prophylaxis: - Coumadin per primary service once medically stable, as above. CODE: FULL Dispo: From home, likely to remain in the hospital x 1-2 days. Thank you for involving us in the care of Mr. Ying. Please do not hesitate to call with questions or concerns. Medicine service will follow along. Supervising Physician Co-Signing Physician Notes I supervised Aniya Metzger PA-C on this patient's care. I examined the patient today independently of her. I discussed the plan of care with her with the plan being as written in her note except for any following changes/exceptions: None. - Hold IV fluids for now. Monitor BP and HR. Check hgb in the morning to see if any blood loss anemia. History of Present Illness Reason for Consultation: Dr. Paez Requesting Physician: Dr. Paez Attending Physician: Arnoldo Paez MD History of Present Illness This is an 83 yo M with PMHx of atrial fibrillation/flutter, chronic systolic CHF, CAD, ischemic cardiomyopathy, s/p CABG in ~ 1993, and 2013, dual chamber ICD implanted in 2012, hx of DC, HLD, MR s/p MVP, interstitial lung disease, hypothyroidism, osteoarthritis, and chronic anemia who presented for an elective R total knee by Dr. Paez on 01/05/19. The patient was seen and examined with his and daughter at bedside. He is doing well since just getting up into the room. He is tolerating food (ice cream) and water without difficulty. He does not yet have sensation down into the lower part of his right leg yet, and cannot move his toes in the RLE. He denies pain. He is pleasantly able to tell me about his significant cardiac history, and that he follows with Dr. To as outpt. He denies any other acute complaints. Allergies Allergy/AdvReac Type Severity Reaction Status Date / Time dronedarone AdvReac Unknown Vomiting Verified 01/05/19 10:05 Home Medications Home Medications Medication Instructions Recorded Confirmed Type warfarin 2 mg tablet 2 mg PO DAILY #30 tab 08/03/18 01/05/19 Rx furosemide 40 mg tablet 40 mg PO QAM tab 10/21/18 01/05/19 History coenzyme Q10 [Co Q-10] 10 mg PO QAM 12/27/18 01/05/19 History docusate sodium [Stool Softener] 100 mg PO UD PRN 12/27/18 01/03/19 History levothyroxine 25 mcg PO QAM 12/27/18 01/05/19 History metoprolol succinate 100 mg PO QDL 12/27/18 01/05/19 History pantoprazole 40 mg PO QAM 12/27/18 01/05/19 History sacubitril-valsartan [Entresto] 1 tab PO BID 12/27/18 01/05/19 History simvastatin 10 mg PO HS 12/27/18 01/05/19 History oxycodone 5 mg PO Q4H PRN #30 tab MDD 6 01/05/19 Rx Patient History Medical History Anemia Atrial fibrillation Atrial flutter CAD (coronary artery disease) s/p CABG (? 1993, 2013) CHF, chronic Cardiac defibrillator in place PPM + dual chamber ICD implanted 2012/[facility]/last checked 10/21/18 History of heart attack multiple History of skin cancer s/p resection History of small bowel obstruction s/p surgical repair Hyperlipidemia Hypothyroidism Interstitial lung disease Ischemic cardiomyopathy Mitral regurgitation s/p MVR Osteoarthritis Poor historian Surgical History History of appendectomy History of bronchoscopy History of cardiac cath History of cataract surgery R/L History of cholecystectomy History of colonoscopy History of esophagogastroduodenoscopy (EGD) History of heart bypass surgery CABG History of intestinal surgery 2/2 small bowel obstruction History of mitral valve replacement Social History Preferred Language: Namibian Communication Ability: Effective Electrical Calibrator Required: No Beliefs That Will Affect Care: None marital status: Current Living Situation: Spouse Other Information That Helps Us Care for You: No Feels Safe at Home: Yes Smoking Status: Never smoker Do You Dip or Chew Tobacco: No ; Hx Alcohol Use: No Hx Substance Use: No Review of Systems Review of Systems: Constitutional: No fever, sweats or chills Eyes: No diplopia, no worsening or blurred vision ENT: normal hearing, no trouble swallowing Respiratory: No cough, sputum, dyspnea at rest or on exertion Cardiovascular: No chest pain, tightness or palpitations Abdomen: No pain, nausea, vomiting, diarrhea or constipation Musculoskeletal: No joint pain, calf pain, swelling Neurologic: No weakness, numbness/tingling, or balance problems Psychiatric: No anxiety or depression Skin: No rash or itch Physical Exam Physical Exam: General: awake, alert, no apparent distress Head: Normocephalic, atraumatic ENT: PERRL, EOMI, no pharyngeal exudate, mucous membranes moist Chest: Clear to auscultation, on room air, no adventitious breath sounds Cardiac: Regular rate and rhythm, no murmur, no JVD, normal peripheral pulses, good capillary refill Abdominal: NABS x 4 quadrants, soft, nontender to palpation, no rebound, guarding or tenderness Extremities: RLE with icepack in place, bandage c/d/i, no peripheral edema or erythema, calfs nontender to palpation Psych: Normal mood and affect Neuro: AAO x 3, + no movement in the RLE s/p surgery, + sensation to light touch is absent in the RLE. Otherwise, no motor deficits, speech is clear, no peripheral sensory deficits Results & Data Vital Signs (Past 12 Hours) Vital Signs Temp Pulse Pulse Resp BP Pulse Ox 01/05/19 15:15 36.5 C 74 14 108/61 92 01/05/19 15:05 36.5 C 72 15 95/66 L 92 01/05/19 14:55 36.5 C 72 15 101/64 94 01/05/19 14:45 36.5 C 72 15 99/62 L 95 01/05/19 14:35 72 23 102/68 97 01/05/19 14:25 74 23 104/68 97 01/05/19 14:17 36.5 C 72 20 114/67 95 01/05/19 10:15 36.5 C 74 20 108/71 98 PG Care Time/CCT Total # of Minutes Spent Total Time Spent with Patient: Total time spent is greater than 50% in coordination of care (as documented) at patient's floor/unit and/or counseling patient: (1) Osteoarthritis of right knee Osteoarthritis type: primary Qualified Code(s): M17.11 - Unilateral primary osteoarthritis, right knee
--- NOTE | 2019-01-05 16:21 | Anesthesiology Progress Note ---
Date of Service January 05, 2019 Anesthesia Post Procedure Vital Signs Vital Signs: Temp Pulse Pulse Resp BP Pulse Ox 01/05/19 16:15 97.7 F 74 17 102/68 97 01/05/19 15:15 97.7 F 74 14 108/61 92 01/05/19 15:05 97.7 F 72 15 95/66 L 92 01/05/19 14:55 97.7 F 72 15 101/64 94 01/05/19 14:45 97.7 F 72 15 99/62 L 95 01/05/19 14:35 72 23 102/68 97 01/05/19 14:25 74 23 104/68 97 01/05/19 14:17 97.7 F 72 20 114/67 95 01/05/19 10:15 97.7 F 74 20 108/71 98 Transfer of Care Handoff Completed per policy Notes Mental Status: alert / awake / arousable and participated in evaluation Patient Amnestic to Procedure: Yes Nausea / Vomiting: adequately controlled Pain: adequately controlled Airway Patency, RR, SpO2: stable & adequate BP & HR: stable & adequate Hydration State: stable & adequate Neuraxial Anesthesia: was administered and sensory block is resolving Anesthetic Complications: no major complications apparent and Pt Satisfied with anesthetic care
[2019-01-05] MEDS ORDERED: WARFARIN SOD 5 MG TAB PO ONE (16:37)
[2019-01-05] MEDS: ORTHO WARFARIN NOMOGRAM SCH (17:40)
[2019-01-05] MEDS: OXYCODONE HCL IR 5 MG TAB (IMMEDIATE RELEASE) PO PRN (19:40)
[2019-01-05] MEDS: DOCUSATE SODIUM 100 MG CAP PO SCH (20:44)
[2019-01-05] MEDS: CEFAZOLIN 1000MG 1,000 MG/7.5 ML SYR IV SCH (20:44)
[2019-01-05] MEDS: SIMVASTATIN 10 MG TAB PO SCH (20:44)
[2019-01-05] MEDS: SENNA 8.6 MG TAB PO SCH (20:44)
[2019-01-05] MEDS ORDERED: SACUBITRIL-VALSARTAN 24-26 MG TAB PO SCH (21:00)
[2019-01-05] MEDS: ACETAMINOPHEN 500 MG TAB PO SCH (21:01)
[2019-01-06] MEDS: CEFAZOLIN 1000MG 1,000 MG/7.5 ML SYR IV SCH (04:51)
[2019-01-06] MEDS: ACETAMINOPHEN 500 MG TAB PO SCH ×3 (04:52→21:17)
[2019-01-06] MEDS: LEVOTHYROXINE SODIUM 25 MCG TABLET PO SCH (04:52)
[2019-01-06 05:50] LABS: Hematocrit (blood only) 35.4 % (42-52); Hemoglobin 11.5 g/dL (14.0-18.0); Mean Corpuscular Hemoglobin 30.9 pg (25-34); Mean Corpuscular Hgb Conc 32.5 g/dL (32-36); Mean Corpuscular Volume 95.2 fL (80-100); Mean Platelet Volume 10.3 fL (7.4-10.4); Platelet Count 149 K/uL (130-400); RDW Coefficient of Variation 13.3 % (11.5-14.5); Red Blood Count 3.72 M/uL (4.7-6.1); White Blood Count 18.28 K/uL (4.8-10.8)
[2019-01-06 06:22] LABS: BUN Creatinine Ratio 15.3 (10-20); Calcium 8.6 mg/dl (8.5-10.1); Creatinine Clr Calc Pharmacy 30.4 ml/min; Est GFR (African American) 39.5; Est GFR (Non-African American) 34.1; Potassium 4.3 mmol/L (3.5-5.1)
--- NOTE | 2019-01-06 07:02 | Orthopedic Progress Note ---
Date of Service January 06, 2019 Assessment & Plan (1) S/P total knee replacement: POD#1 Right TKA -PT/OT -Pain management -DVt prophylaxis-Warfarin -D/C Planning-home with either HH or OPPT when stable -AM labs hemoglobin at 11.5. Creatinine at 1.8 from baseline of 1.1. Will defer to medicine service for possible ALEX. Subjective Patient is POD#1 TKA, doing well. Minimal pain. No chest pain, sob, nausea, vomiting, dizziness. Review of Systems Review of Systems: All systems reviewed & are unremarkable except as noted in HPI & below Physical Exam Physical Exam: Right knee-Dressing is c/d/i, toes mobile, good dorsiflexion. No calf tenderness. Distally n/v status and sensation intact. Results & Data Vital Signs (Past 12 Hours) Vital Signs Temp Pulse Resp BP BP Pulse Ox 01/06/19 03:50 36.4 C L 71 15 81/48 L 94 01/06/19 00:00 71 91/44 L 01/05/19 23:41 36.4 C L 73 15 87/47 L 79/50 L 95 Laboratory Results H & H 12/30/18 01/06/19 Range/Units 14:05 05:20 Hgb 13.5 L 11.5 L (14.0-18.0) g/dL Hct 41.9 L 35.4 L (42-52) % Coagulation 12/30/18 01/05/19 Range/Units 14:05 10:01 INR 2.5 H 1.2 H (0.9-1.1) (1) S/P total knee replacement Laterality: right Qualified Code(s): Z96.651 - Presence of right artificial knee joint
[2019-01-06] MEDS ORDERED: NON-FORMULARY MEDICATION (Coenzyme Q10 [Co Q-10] 10 MG) PO SCH (09:00)
[2019-01-06] MEDS ORDERED: FUROSEMIDE 40 MG TAB PO SCH (09:00)
[2019-01-06] MEDS: DOCUSATE SODIUM 100 MG CAP PO SCH ×2 (09:03→20:03)
[2019-01-06] MEDS: MULTIVITAMIN TAB PO SCH (09:03)
[2019-01-06] MEDS: PANTOprazole 40 MG TAB PO SCH (09:04)
[2019-01-06] MEDS: METOPROLOL SUCC 50MG EXT REL TAB PO SCH (12:01)
--- NOTE | 2019-01-06 13:03 | Hospitalist Progress Note ---
Date of Service January 06, 2019 Assessment & Plan (1) Acute kidney injury: * Creat 1.81 * Baseline appears to be ~ 1 * Held morning lasix * Morning entresto held * Appears to euvolemic on exam - will re-evaluate BP this afternoon with possible hold this evening -- resume in AM if kidney function improved and BP tolerates (2) Prediabetes: * A1c 6.1 * No diabetic medications * perioperative educator consulted * Will monitor glucose during admission, SSI if running high (3) S/P total knee replacement: * POD # 1 s/p R TKA * Pain management, bowel regimen and DVT ppx per the primary team * PT/OT on board * CBC stable 11.5/35.4 * Will continue to monitor (4) Osteoarthritis of right knee: * As above (5) Chronic systolic CHF (congestive heart failure): * Caution with fluid overload in the setting of surgery with hx of CHF * Tolerating PO intake without difficulty. * Resume lasix 40 mg in AM tomorrow as above (6) Ischemic cardiomyopathy: * Continue metoprolol succinate 100 mg PO QDL - BP currently 94/57, monitor shift vitals and may need to decrease the morning dose * Cont Entresto 24/26 mg 1 tab BID * HH diet * ICD in place (7) CAD (coronary artery disease): * Continue statin, metoprolol as above. No aspirin therapy currently (8) S/P CABG (coronary artery bypass graft): (9) S/P coronary artery stent placement: (10) Atrial fibrillation: * Permanent, ICD in place. * Metoprolol for rate control * continue coumadin for stroke risk reduction once stable from a surgical standpoint, likely within 24 hours. (11) Mitral regurgitation: - Noted, s/p MVP and valve replacement. (12) S/P mitral valve replacement: (13) S/P ICD (internal cardiac defibrillator) procedure: - Follows with Dr. Britt as outpatient, pt may need biventricular ICD upgrade per cardiology records in the future. 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 He reports this as resolved. (17) DVT prophylaxis: - Coumadin per primary service once medically stable, as above. CODE: FULL Dispo: From home, likely to remain in the hospital until Wednesday, pending resolution of ALEX Thank you for involving us in the care of Mr. Ying. Please do not hesitate to call with questions or concerns. Medicine service will follow along. Supervising Physician Co-Signing Physician Notes Attending Attestation: Chart reviewed in detail, care plan d/w PA Carri Wise. I agree w/ the matute components of her documentation. POD #1 s/p right TKR. Complicated by acute kidney injury. Agree with plans for holding of entresto and lasix given the low BPs and ALEX. Other plans per Ms Wise. Acute blood loss anemia - Hb down about 2 grams from baseline. Would repeat CBC in am and consider ferrous sulfate supplementation. Myke Doherty MD Subjective Patient evaluated in chair today. He states he feels good, just waiting for therapy to ambulate. He states he plans on going home Wednesday with home PT. He states he has been moving his bowels. Good appetite. No swelling. Pain manageable with oral medications. Review of Systems Constitutional: no fever and no chills Eyes: no blind spots and no diplopia Respiratory: no cough, no chest congestion and no dyspnea Cardiovascular: no chest pain, no palpitations, no syncope and no edema Gastrointestinal: no nausea, no vomiting and no constipation Genitourinary: no dysuria and no urinary frequency Musculoskeletal: right knee pain Neurologic: no falls, no syncope and no headache(s) Physical Exam Constitutional: WD/WN, vitals as above no acute distress Eyes: PERRL, conjunctivae normal, anicteric sclerae Neck: trachea midline, no thyromegaly Respiratory: normal respiratory effort, lungs clear to auscultation Cardiovascular: Rate/Rhythm: regular rate and regular rhythm Heart Sounds: + murmur Vessels: no JVD Gastrointestinal (Abdomen): normal bowel sounds, soft, nontender, no hepatosplenomegaly Musculoskeletal: no cyanosis or clubbing, extremities motor strength 5/5 Skin: dress right knee c/d/i NVI Neurologic: PERRL, EOMI, accommodation nl, no face palsy, no dysarthria Psychiatric: A+Ox3, euthymic affect Results & Data Vital Signs (Past 12 Hours) Vital Signs Temp Pulse Resp BP BP Pulse Ox 01/06/19 11:53 36.5 C 68 14 83/44 L 92/48 L 92 01/06/19 09:05 87/43 L 01/06/19 07:40 36.4 C L 72 14 79/47 L 81/53 L 97 01/06/19 03:50 36.4 C L 71 15 81/48 L 94 PG Care Time/CCT Total # of Minutes Spent Total Time Spent with Patient: Total time spent is greater than 50% in c oordination of care (as documented) at patient's floor/unit and/or counseling patient: (1) S/P total knee replacement Laterality: right Qualified Code(s): Z96.651 - Presence of right artificial knee joint (2) Osteoarthritis of right knee Osteoarthritis type: primary Qualified Code(s): M17.11 - Unilateral primary osteoarthritis, right knee
[2019-01-06 14:29] LABS: INR 1.3 (0.9-1.1); Prothrombin Time 13.3 Seconds (9.0-12.0)
[2019-01-06] MEDS: ORTHO WARFARIN NOMOGRAM SCH (14:33)
[2019-01-06] MEDS ORDERED: WARFARIN SOD 3 MG TAB PO SCH (16:00)
[2019-01-06] MEDS: SENNA 8.6 MG TAB PO SCH (20:03)
[2019-01-06] MEDS: SIMVASTATIN 10 MG TAB PO SCH (20:03)
[2019-01-07] MEDS: OXYCODONE HCL IR 5 MG TAB (IMMEDIATE RELEASE) PO PRN ×2 (00:56→05:19)
[2019-01-07] MEDS: LEVOTHYROXINE SODIUM 25 MCG TABLET PO SCH (05:20)
[2019-01-07] MEDS: ACETAMINOPHEN 500 MG TAB PO SCH ×2 (05:20→14:04)
[2019-01-07 05:32] LABS: Hematocrit (blood only) 28.6 % (42-52); Hemoglobin 9.7 g/dL (14.0-18.0); Mean Corpuscular Hemoglobin 31.4 pg (25-34); Mean Corpuscular Hgb Conc 33.9 g/dL (32-36); Mean Corpuscular Volume 92.6 fL (80-100); Mean Platelet Volume 10.2 fL (7.4-10.4); Platelet Count 130 K/uL (130-400); RDW Coefficient of Variation 13.6 % (11.5-14.5); RDW Standard Deviation 45.2 fL (36.4-46.3); Red Blood Count 3.09 M/uL (4.7-6.1); White Blood Count 11.38 K/uL (4.8-10.8)
[2019-01-07 05:42] LABS: INR 1.6 (0.9-1.1); Prothrombin Time 16.2 Seconds (9.0-12.0)
[2019-01-07 05:56] LABS: BUN Creatinine Ratio 18.9 (10-20); Calcium 8.1 mg/dl (8.5-10.1); Est GFR (African American) 49.9; Est GFR (Non-African American) 43.1; Potassium 4.2 mmol/L (3.5-5.1)
--- NOTE | 2019-01-07 07:53 | Orthopedic Progress Note ---
Date of Service January 07, 2019 Assessment & Plan (1) S/P total knee replacement: POD#2 Right TKA -PT/OT -Pain management -DVt prophylaxis-Warfarin -D/C Planning-home with HHPT when medically stable, possibly later today if cleared by medicine. -AM labs hemoglobin at 9.7-acute blood loss anemia likely due to surgical loss vs dilutional effect. Creatinine at 1.41 this am down from 1.8 yesterday. Significantly improved today but still not back to baseline. Will defer to medicine if patient is stable for discharge. Subjective Patient is POD#2 TKA, doing well. Minimal pain. No chest pain, sob, nausea, vomiting, dizziness. Kidney function has improved this am. BP's running low. Review of Systems Review of Systems: All systems reviewed & are unremarkable except as noted in HPI & below Physical Exam Physical Exam: Right knee-Dressing is c/d/i, toes mobile, good dorsiflexion. No calf tenderness. Distally n/v status and sensation intact. Dressing to old hemovac site. Constitutional: well developed and well nourished; no acute distress Results & Data Vital Signs (Past 12 Hours) Vital Signs Temp Pulse Resp BP Pulse Ox 01/07/19 07:32 36.4 C L 67 16 99/62 L 97 01/07/19 00:05 36.7 C 72 18 97/55 L 95 01/06/19 20:12 69 103/64 97 (1) S/P total knee replacement Laterality: right Qualified Code(s): Z96.651 - Presence of right artificial knee joint
[2019-01-07] MEDS: MULTIVITAMIN TAB PO SCH (08:57)
[2019-01-07] MEDS: PANTOprazole 40 MG TAB PO SCH (08:57)
[2019-01-07] MEDS: DOCUSATE SODIUM 100 MG CAP PO SCH (09:00)
[2019-01-07] MEDS ORDERED: DOCUSATE SODIUM 100 MG CAP PO ONE (09:47)
--- NOTE | 2019-01-07 10:51 | Hospitalist Progress Note ---
Date of Service January 07, 2019 Assessment & Plan (1) Acute kidney injury: * Creat improved to 1.49 today down from 1.8 * Acute kidney injury likely secondary to hypotension in the setting of continued diuretics and ARB * Baseline appears to be ~ 1 * Held Lasix and Entresto temporarily-creatinine improved and blood pressures improved * Appears to euvolemic on exam * Would recommend hold Entresto, Lasix for today -- would restart in AM at home after discharge as creatinine improved to 1.49 today -- will need repeat BMP in next 2-3 days as an outpatient (2) Prediabetes: * A1c 6.1 * No diabetic medications * clinical educator consulted * Will need outpatient follow-up (3) S/P total knee replacement: * POD # 2 s/p R TKA * Pain management, bowel regimen and DVT ppx per the primary team * PT/OT on board * CBC decreased to 9.7/28.6 * Follow-up with orthopedics after discharge (4) Osteoarthritis of right knee: * As above (5) Chronic systolic CHF (congestive heart failure): * Caution with fluid overload in the setting of surgery with hx of CHF- appears euvolemic * Tolerating PO intake without difficulty. * Weight up ~4 lbs since outpatient HF note but could be variability in scales * Most recent ECHO 07/27/18 -- LV EF 23%, apical inferior septum dyskinetic. Apical lateral anterior and apical inferior segments akinetic. Remainder of LV hypokinetic. LA severaly enlarged. Mitral valve bioprosthesis. Est pulm art pressure 40mmHg. * Monitor for s/sx overload-- patient currently asymptomatic -- would resume lasix in AM after discharge given recent weight gain (6) Ischemic cardiomyopathy: * Continue metoprolol succinate 100 mg PO once daily * Entresto held but will restart tomorrow * Restart Lasix tomorrow * HH diet * ICD in place * Follow-up with cardiology after discharge (7) CAD (coronary artery disease): * Continue statin, metoprolol as above. No aspirin therapy currently but was recommended by cardiology at last visit (8) S/P CABG (coronary artery bypass graft): CAD as above (9) S/P coronary artery stent placement: CAD noted as above (10) Atrial fibrillation: * Permanent, ICD in place. * Metoprolol for rate control * continue coumadin for stroke risk reduction-was started here in the hospital and INR was 1.6 on the day of discharge * Continue home dosing and check INR on Wednesday of next week (11) Mitral regurgitation: - Noted, s/p MVP and valve replacement. Follows with cardiology (12) S/P mitral valve replacement: Follows with cardiology (13) S/P ICD (internal cardiac defibrillator) procedure: - Follows with Dr. Britt as outpatient, pt may need biventricular ICD upgrade per cardiology records in the future. 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 He reports this as resol tori. (17) Acute blood loss anemia: As above -- secondary to surgery, dilution H/H 9.7/28.6 today Blood pressures were low after surgery Hemodynamically stable now (18) DVT prophylaxis: - Coumadin Disposition-stable for discharge to home Supervising Physician Co-Signing Physician Notes PA Supervision Note: I personally saw and examined the patient. I verified all matute points and agree with RISSA Wise with the following exceptions and/or additions: Patient doing very well on postoperative day #2 status post right TKA. Denies chest pain or shortness of breath. He is ambulating the halls quite aggressively as per physical therapy. Blood pressures are improved back to his baseline after being low the previous 2 days. His acute kidney injury is also improving. They will be safe for him to restart his Lasix and Entresto tomorrow and have a follow-up BMP on Wednesday. Vitals reviewed Gen: AAOx3, NAD HEENT: Anicteric sclerae, EOMI CV: RRR 2/6 systolic murmur at the left lower sternal border nl S1S2 Pulm: CTAB no wcr Abd: +BS soft NT ND no masses or hernias Ext: Right knee with dressing in place with edema in the right leg and some ecchymosis, drain in place 83-year-old male with complex cardiac history doing very well status post TKA With ALEX that is resolving, acute blood loss anemia which is stabilized -Stable for discharge to home with plan as above Subjective Patient with tolerable pain. Has been ambulatory with PT. Would like to return home with home health. Denies feeling lightheaded. BP normally 100s systolically at home per patient. He checks BP regularly. Denies shortness of breath. Review of Systems Review of Systems: no fever and no chills no blind spots and no diplopia no cough, no chest congestion and no dyspnea no chest pain, no palpitations, no syncope and no edema no nausea, no vomiting and no constipation no dysuria and no urinary frequency right knee pain no falls, no syncope and no headache(s) Physical Exam Constitutional: WD/WN, vitals as above no acute distress Eyes: PERRL, conjunctivae normal, anicteric sclerae Neck: trachea midline, no thyromegaly Respiratory: normal respiratory effort, lungs clear to auscultation Cardiovascular: Rate/Rhythm: regular rate and regular rhythm Heart Sounds: + murmur Vessels: no JVD Gastrointestinal (Abdomen): normal bowel sounds, soft, nontender, no hepa tosplenomegaly Musculoskeletal: no cyanosis or clubbing, extremities motor strength 5/5 Neurologic: PERRL, EOMI, accommodation nl, no face palsy, no dysarthria Psychiatric: A+Ox3, euthymic affect Results & Data Vital Signs (Past 12 Hours) Vital Signs Temp Pulse Resp BP Pulse Ox 01/07/19 07:32 36.4 C L 67 16 99/62 L 97 01/07/19 00:05 36.7 C 72 18 97/55 L 95 Laboratory Results 01/07/19 01/07/19 01/07/19 Range/Units 04:38 04:38 04:38 WBC 11.38 H (4.8-10.8) K/uL RBC 3.09 L (4.7-6.1) M/uL Hgb 9.7 L (14.0-18.0) g/dL Hct 28.6 L (42-52) % MCV 92.6 (80-100) fL MCH 31.4 (25-34) pg MCHC 33.9 (32-36) g/dL RDW Std Deviation 45.2 (36.4-46.3) fL RDW Coeff of Silvia 13.6 (11.5-14.5) % Plt Count 130 (130-400) K/uL MPV 10.2 (7.4-10.4) fL PT 16.2 H (9.0-12.0) Seconds INR 1.6 H (0.9-1.1) Sodium 134 L (136-145) mmol/L Potassium 4.2 (3.5-5.1) mmol/L Chloride 102 (98-107) mmol/L Carbon Dioxide 27 (21-32) mmol/L Anion Gap 5.0 (3-11) BUN 28 H (7-18) mg/dl Creatinine 1.49 H D (0.6-1.4) mg/dl Est Cr Clr Drug Dosing 37.0 ml/min Est GFR ( Amer) 49.9 Est GFR (Non-Af Amer) 43.1 BUN/Creatinine Ratio 18.9 (10-20) Glucose 102 H (70-99) mg/dl Calcium 8.1 L (8.5-10.1) mg/dl 01/06/19 Range/Units 14:04 WBC (4.8-10.8) K/uL RBC (4.7-6.1) M/uL Hgb (14.0-18.0) g/dL Hct (42-52) % MCV (80-100) fL MCH (25-34) pg MCHC (32-36) g/dL RDW Std Deviation (36.4-46.3) fL RDW Coeff of Silvia (11.5-14.5) % Plt Count (130-400) K/uL MPV (7.4-10.4) fL PT 13.3 H (9.0-12.0) Seconds INR 1.3 H (0.9-1.1) Sodium (136-145) mmol/L Potassium (3.5-5.1) mmol/L Chloride (98-107) mmol/L Carbon Dioxide (21-32) mmol/L Anion Gap (3-11) BUN (7-18) mg/dl Creatinine (0.6-1.4) mg/dl Est Cr Clr Drug Dosing ml/min Est GFR ( Amer) Est GFR (Non-Af Amer) BUN/Creatinine Ratio (10-20) Glucose (70-99) mg/dl Calcium (8.5-10.1) mg/dl PG Care Time/CCT Total # of Minutes Spent Total Time Spent with Patient: Total time spent is greater than 50% in coordination of care (as documented) at patient's floor/unit and/or counseling patient: (1) S/P total knee replacement Laterality: right Qualified Code(s): Z96.651 - Presence of right artificial knee joint (2) Osteoarthritis of right knee Osteoarthritis type: primary Qualified Code(s): M17.11 - Unilateral primary osteoarthritis, right knee
[2019-01-07] MEDS: METOPROLOL SUCC 50MG EXT REL TAB PO SCH (11:22)
[2019-01-07] MEDS: ORTHO WARFARIN NOMOGRAM SCH (12:23)
[2019-01-07] MEDS ORDERED: WARFARIN SOD 2 MG TAB PO SCH (16:00)
--- NOTE | 2019-01-08 13:06 | Discharge Summary ---
Date of Service January 08, 2019 Admission HPI Per Admitting Provider Patient is an 83 year old male with PMHx significant for mitral regurg s/p valve replacement, a-fib, CHF, pacemaker and defibrillator, OA, anticoagulated on warfarin, asthma, hypothyroidism who presents with longstanding right knee pain. Previously has had left knee replacement several years ago. He has failed conservative measures including cortisone injections. Unable to take NSAIDs. Last injection was about 6 mos ago with minimal relief. He would like to proceed with right knee replacement. Patient denies headaches, sweats, fevers, chills, double vision, blurred vision, cough, sore throat, dysphagia, chest pain, sob, wheezing, n/v/d/c, numbness, tingling, fatigue, urinary symptoms, mood disorders. ROS positive for right knee pain and stiffness. Admission Exam Per Admitting Provider Constitutional: well developed and well nourished; no acute distress Eyes: PERRL, conjunctivae normal, anicteric sclerae ENMT: external ear and nose normal, oropharynx normal Neck: trachea midline, no thyromegaly Respiratory: normal respiratory effort, lungs clear to auscultation Cardiovascular: RRR, no murmur, no edema Musculoskeletal: Right knee-Mild effusion, tenderness medial joint line. Moderate crepitation with ROM. ROM is 5-100 degrees. Positive Jadiel's. Stable to valgus and varus stress tests Skin: no rashes, warm and dry Neurologic: patellar DTR's 2+ bilat, sensation intact Psychiatric: A+Ox3, euthymic affect Principal Diagnosis Right knee osteoarthritis Discharge Exam Constitutional well developed and well nourished; no acute distress Eyes PERRL, conjunctivae normal, anicteric sclerae ENMT external ear and nose normal, oropharynx normal Neck trachea midline, no thyromegaly Respiratory normal respiratory effort, lungs clear to auscultation Cardiovascular RRR, no murmur, no edema Skin no rashes, warm and dry Neurologic patellar DTR's 2+ bilat, sensation intact Psychiatric A+Ox3, euthymic affect Discharge Data Allergies Allergy/AdvReac Type Severity Reaction Status Date / Time dronedarone AdvReac Unknown Vomiting Verified 01/05/19 10:05 Consultations 01/05/19 15:46 Consult Case Management - Discharge Planning Routine Consult Hospitalist Routine Procedures Performed Operation Date: 01/05/19 12:15 Actual Procedures p Right Total Knee Arthroplasty(Right) - Arnoldo Paez MD Ordered Studies 01/05/19 05:00 US - OR guided needle placemen Routine Hospital Course (1) S/P total knee replacement: Patient presented for same day admission following right total knee arthroplasty on 01/05/19. He tolerated procedure well. Post-operatively, his activity was progressed and well tolerated. They participated in PT with ambulation distance of 325 feet. ROM of operative knee reached 100 degrees. Labs remained stable- lowest hemoglobin recorded: 9.7. Dr. Ollie Saenz of medical service was consulted for medical management during admission. On POD#1 he was noted to have ALEX with creatinine of 1.8 from baseline of 1.1. This had improved to 1.4 on POD#2. Pain was controlled on oral medications. Please refer to daily progress notes and PT notes for complete details. After exam on 01/07/19, patient was felt to be stable for discharge home with home health PT and instructions for repeat BMP 2-3 days post operatively. . Patient will f/u in the office in about 2 weeks for further evaluation including x-rays and incision check, sooner if having any issues or concerns. Lab Results 12/30/18 12/30/18 12/30/18 Range/Units 14:05 14:05 14:05 WBC 5.99 (4.8-10.8) K/uL RBC 4.36 L (4.7-6.1) M/uL Hgb 13.5 L (14.0-18.0) g/dL Hct 41.9 L (42-52) % MCV 96.1 (80-100) fL MCH 31.0 (25-34) pg MCHC 32.2 (32-36) g/dL RDW Std Deviation 47.3 H (36.4-46.3) fL RDW Coeff of Silvia 13.5 (11.5-14.5) % Plt Count 154 (130-400) K/uL MPV 10.7 H (7.4-10.4) fL Immature Gran % (Auto) 0.2 % Neut % (Auto) 65.5 % Lymph % (Auto) 23.0 % [place] % (Auto) 7.5 % Eos % (Auto) 3.5 % Baso % (Auto) 0.3 % Immature Gran # (Auto) 0.01 (0.00-0.02) K/uL Neut # (Auto) 3.92 (1.4-6.5) K/uL Lymph # (Auto) 1.38 (1.2-3.4) K/uL [place] # (Auto) 0.45 (0.11-0.59) K/uL Eos # (Auto) 0.21 (0-0.5) K/uL Baso # (Auto) 0.02 (0-0.2) K/uL PT 24.0 H (9.0-12.0) Seconds INR 2.5 H (0.9-1.1) APTT 34.2 H (21.0-31.0) Seconds PTT Ratio 1.3 Sodium 137 (136-145) mmol/L Potassium 4.8 (3.5-5.1) mmol/L Chloride 104 (98-107) mmol/L Carbon Dioxide 30 (21-32) mmol/L Anion Gap 3.0 (3-11) BUN 19 H (7-18) mg/dl Creatinine 1.17 (0.6-1.4) mg/dl Est Cr Clr Drug Dosing 47.1 ml/min Est GFR ( Amer) 66.9 Est GFR (Non-Af Amer) 57.7 BUN/Creatinine Ratio 16.5 (10-20) Glucose 112 H (70-99) mg/dl Estimat Average Glucose mg/dl Hemoglobin A1c (4.5-5.6) % Calcium 8.9 (8.5-10.1) mg/dl Albumin 4.0 (3.4-5.0) gm/dl Urine Color Urine Appearance (Clear) Urine pH (4.5-7.5) Ur Specific [place] (1.000-1.030) Urine Protein (Negative) Urine Glucose (UA) (Negative) Urine Ketones (Negative) Urine Blood (Negative) Urine Nitrite (Negative) Urine Bilirubin (Negative) Urine Urobilinogen (Negative) Ur Leukocyte Esterase (Negative) Blood Type Antibody Screen 12/30/18 12/30/18 12/30/18 Range/Units 14:05 14:05 14:05 WBC (4.8-10.8) K/uL RBC (4.7-6.1) M/uL Hgb (14.0-18.0) g/dL Hct (42-52) % MCV (80-100) fL MCH (25-34) pg MCHC (32-36) g/dL RDW Std Deviation (36.4-46.3) fL RDW Coeff of Silvia (11.5-14.5) % Plt Count (130-400) K/uL MPV (7.4-10.4) fL Immature Gran % (Auto) % Neut % (Auto) % Lymph % (Auto) % [place] % (Auto) % Eos % (Auto) % Baso % (Auto) % Immature Gran # (Auto) (0.00-0.02) K/uL Neut # (Auto) (1.4-6.5) K/uL Lymph # (Auto) (1.2-3.4) K/uL [place] # (Auto) (0.11-0.59) K/uL Eos # (Auto) (0-0.5) K/uL Baso # (Auto) (0-0.2) K/uL PT (9.0-12.0) Seconds INR (0.9-1.1) APTT (21.0-31.0) Seconds PTT Ratio Sodium (136-145) mmol/L Potassium (3.5-5.1) mmol/L Chloride (98-107) mmol/L Carbon Dioxide (21-32) mmol/L Anion Gap (3-11) BUN (7-18) mg/dl Creatinine (0.6-1.4) mg/dl Est Cr Clr Drug Dosing ml/min Est GFR ( Amer) Est GFR (Non-Af Amer) BUN/Creatinine Ratio (10-20) Glucose (70-99) mg/dl Estimat Average Glucose 128 mg/dl Hemoglobin A1c 6.1 H (4.5-5.6) % Calcium (8.5-10.1) mg/dl Albumin (3.4-5.0) gm/dl Urine Color Yellow Urine Appearance Clear (Clear) Urine pH 5.5 (4.5-7.5) Ur Specific [place] 1.014 (1.000-1.030) Urine Protein Negative (Negative) Urine Glucose (UA) Negative (Negative) Urine Ketones Negative (Negative) Urine Blood Negative (Negative) Urine Nitrite Negative (Negative) Urine Bilirubin Negative (Negative) Urine Urobilinogen Negative (Negative) Ur Leukocyte Esterase Negative (Negative) Blood Type A Positive Antibody Screen NEGATIVE 01/05/19 01/06/19 01/06/19 Range/Units 10:01 05:20 05:20 WBC 18.28 H (4.8-10.8) K/uL RBC 3.72 L (4.7-6.1) M/uL Hgb 11.5 L (14.0-18.0) g/dL Hct 35.4 L (42-52) % MCV 95.2 (80-100) fL MCH 30.9 (25-34) pg MCHC 32.5 (32-36) g/dL RDW Std Deviation 46.0 (36.4-46.3) fL RDW Coeff of Silvia 13.3 (11.5-14.5) % Plt Count 149 (130-400) K/uL MPV 10.3 (7.4-10.4) fL Immature Gran % (Auto) % Neut % (Auto) % Lymph % (Auto) % [place] % (Auto) % Eos % (Auto) % Baso % (Auto) % Immature Gran # (Auto) (0.00-0.02) K/uL Neut # (Auto) (1.4-6.5) K/uL Lymph # (Auto) (1.2-3.4) K/uL [place] # (Auto) (0.11-0.59) K/uL Eos # (Auto) (0-0.5) K/uL Baso # (Auto) (0-0.2) K/uL PT 11.8 (9.0-12.0) Seconds INR 1.2 H (0.9-1.1) APTT 26.5 (21.0-31.0) Seconds PTT Ratio 1.0 Sodium 134 L (136-145) mmol/L Potassium 4.3 (3.5-5.1) mmol/L Chloride 102 (98-107) mmol/L Carbon Dioxide 25 (21-32) mmol/L Anion Gap 7.0 (3-11) BUN 28 H (7-18) mg/dl Creatinine 1.81 H (0.6-1.4) mg/dl Est Cr Clr Drug Dosing 30.4 ml/min Est GFR ( Amer) 39.5 Est GFR (Non-Af Amer) 34.1 BUN/Creatinine Ratio 15.3 (10-20) Glucose 150 H (70-99) mg/dl Estimat Average Glucose mg/dl Hemoglobin A1c (4.5-5.6) % Calcium 8.6 (8.5-10.1) mg/dl Albumin (3.4-5.0) gm/dl Urine Color Urine Appearance (Clear) Urine pH (4.5-7.5) Ur Specific [place] (1.000-1.030) Urine Protein (Negative) Urine Glucose (UA) (Negative) Urine Ketones (Negative) Urine Blood (Negative) Urine Nitrite (Negative) Urine Bilirubin (Negative) Urine Urobilinogen (Negative) Ur Leukocyte Esterase (Negative) Blood Type Antibody Screen 01/06/19 01/07/19 01/07/19 Range/Units 14:04 04:38 04:38 WBC 11.38 H (4.8-10.8) K/uL RBC 3.09 L (4.7-6.1) M/uL Hgb 9.7 L (14.0-18.0) g/dL Hct 28.6 L (42-52) % MCV 92.6 (80-100) fL MCH 31.4 (25-34) pg MCHC 33.9 (32-36) g/dL RDW Std Deviation 45.2 (36.4-46.3) fL RDW Coeff of Silvia 13.6 (11.5-14.5) % Plt Count 130 (130-400) K/uL MPV 10.2 (7.4-10.4) fL Immature Gran % (Auto) % Neut % (Auto) % Lymph % (Auto) % [place] % (Auto) % Eos % (Auto) % Baso % (Auto) % Immature Gran # (Auto) (0.00-0.02) K/uL Neut # (Auto) (1.4-6.5) K/uL Lymph # (Auto) (1.2-3.4) K/uL [place] # (Auto) (0.11-0.59) K/uL Eos # (Auto) (0-0.5) K/uL Baso # (Auto) (0-0.2) K/uL PT 13.3 H (9.0-12.0) Seconds INR 1.3 H (0.9-1.1) APTT (21.0-31.0) Seconds PTT Ratio Sodium 134 L (136-145) mmol/L Potassium 4.2 (3.5-5.1) mmol/L Chloride 102 (98-107) mmol/L Carbon Dioxide 27 (21-32) mmol/L Anion Gap 5.0 (3-11) BUN 28 H (7-18) mg/dl Creatinine 1.49 H D (0.6-1.4) mg/dl Est Cr Clr Drug Dosing 37.0 ml/min Est GFR ( Amer) 49.9 Est GFR (Non-Af Amer) 43.1 BUN/Creatinine Ratio 18.9 (10-20) Glucose 102 H (70-99) mg/dl Estimat Average Glucose mg/dl Hemoglobin A1c (4.5-5.6) % Calcium 8.1 L (8.5-10.1) mg/dl Albumin (3.4-5.0) gm/dl Urine Color Urine Appearance (Clear) Urine pH (4.5-7.5) Ur Specific [place] (1.000-1.030) Urine Protein (Negative) Urine Glucose (UA) (Negative) Urine Ketones (Negative) Urine Blood (Negative) Urine Nitrite (Negative) Urine Bilirubin (Negative) Urine Urobilinogen (Negative) Ur Leukocyte Esterase (Negative) Blood Type Antibody Screen 01/07/19 Range/Units 04:38 WBC (4.8-10.8) K/uL RBC (4.7-6.1) M/uL Hgb (14.0-18.0) g/dL Hct (42-52) % MCV (80-100) fL MCH (25-34) pg MCHC (32-36) g/dL RDW Std Deviation (36.4-46.3) fL RDW Coeff of Silvia (11.5-14.5) % Plt Count (130-400) K/uL MPV (7.4-10.4) fL Immature Gran % (Auto) % Neut % (Auto) % Lymph % (Auto) % [place] % (Auto) % Eos % (Auto) % Baso % (Auto) % Immature Gran # (Auto) (0.00-0.02) K/uL Neut # (Auto) (1.4-6.5) K/uL Lymph # (Auto) (1.2-3.4) K/uL [place] # (Auto) (0.11-0.59) K/uL Eos # (Auto) (0-0.5) K/uL Baso # (Auto) (0-0.2) K/uL PT 16.2 H (9.0-12.0) Seconds INR 1.6 H (0.9-1.1) APTT (21.0-31.0) Seconds PTT Ratio Sodium (136-145) mmol/L Potassium (3.5-5.1) mmol/L Chloride (98-107) mmol/L Carbon Dioxide (21-32) mmol/L Anion Gap (3-11) BUN (7-18) mg/dl Creatinine (0.6-1.4) mg/dl Est Cr Clr Drug Dosing ml/min Est GFR ( Amer) Est GFR (Non-Af Amer) BUN/Creatinine Ratio (10-20) Glucose (70-99) mg/dl Estimat Average Glucose mg/dl Hemoglobin A1c (4.5-5.6) % Calcium (8.5-10.1) mg/dl Albumin (3.4-5.0) gm/dl Urine Color Urine Appearance (Clear) Urine pH (4.5-7.5) Ur Specific [place] (1.000-1.030) Urine Protein (Negative) Urine Glucose (UA) (Negative) Urine Ketones (Negative) Urine Blood (Negative) Urine Nitrite (Negative) Urine Bilirubin (Negative) Urine Urobilinogen (Negative) Ur Leukocyte Esterase (Negative) Blood Type Antibody Screen Total Time Total Time Spent Total Time Spent (In Minutes): 20 Discharge Plan Discharge Items Patient Disposition: Home - Home Health Services Reason For Visit: Right Knee Osteoarthritis Discharge Diagnosis: Right knee osteoarthritis Condition on Discharge: Good Activity: Per Instructions section Non-emergency contact: Surgeon Call non-emergency contact if: you have any medication questions, your pain is not controlled, your pain is worsening, your pain is concerning for you, you have a fever, your temperature is above 101, your wound has increased redness and your wound has increased drainage Follow-up/Referrals: Aissatou Martinez MD [Primary Care Provider] - Diet: Low Sodium (2gm) Ambulatory Orders: Basic Metabolic Panel (Routine) Timeframe: 2 Days Location: Determined by Patient Ordered By: Raina Garcia Attending Provider Instructions: ACTIVITY RECOMMENDATIONS: SELF CARE INSTRUCTIONS AFTER TOTAL KNEE REPLACEMENT A. You may need to continue a physical therapy program after discharge from the hospital. There are several options available to you. Your doctor will assist you in selecting the best one for you. 1. An out-patient facility 2 to 3 times a week for therapy or home therapy. 2. Continue working on all exercises taught to you in the hospital. Your goals should be to increase bending of your knee to 90 degrees and beyond and to fully straighten your knee. B. You may progress at your own pace from walking with a walker or crutches to a cane; then to no assistive devices. C. Make walking a part of your daily routine. Be up as much as comfortable with rest periods throughout the day. Rest with leg elevation is very important. Use the ice wrap frequently for the first 3-4 weeks. D. There are no restrictions on activities. You may ride in a car, shop, participate in winder operator and all social activities. E. Wear the long elastic stockings (DEVENDRA hose) 20 hours a day for 2 weeks after surgery. They can be removed several times a day for laundering and for a bath. F. You may shower, no tub baths until cleared by your doctor. SPECIAL CARE INSTRUCTIONS: VERY IMPORTANT TO READ AND REVIEW A. There are a few signs you need to watch for after you are home. Call [facility] if you notice any of the followin. Increased severe knee pain. Some pain is expected especially when you exercise. 2. Increased swelling in your leg or knee; pain or swelling of the calf muscle in either lower leg. 3. Any fluid drainage from the incision. 4. Shortness of breath or chest pain. B. Please call [facility] at if you have any concerns or questions about your operation or recovery. The doctor or his nurse will return your call promptly. C. You must take antibiotics before dental work, bladder, bowel or other surgery. Your doctor will provide you with a permanent care to carry describing this precaution. IMPORTANT: * RESUME YOUR HOME WARFARIN UPON DISCHARGE, THIS IS YOUR BLOOD THINNER. * CALL IF INCREASED PAIN, REDNESS, DRAINAGE OR FEVER GREATER THAT 101. * WEAR DEVENDRA HOSE 20 HOURS PER DAY FOR 2 WEEKS. * This is a large suction dressing covering your incision. This will help pull any excess drainage from the wound and allow your incision to heal properly. You may shower with this if you can keep the unit outside of the shower. If any bleeding or leakage is noted please call your doctor's office. This will remain on your incision for 7 days and then should be removed. This can be done yourself or by the home nursing staff if applicable. The entire unit is disposable once removed. Once removed, keep incision clean and dry. If redness or drainage is noted, please call your surgeon. FOLLOW UP VISIT: If appointment is not already scheduled: Please call [facility] to make a follow-up appointment for 2 weeks after your surgery at . Addtl Resident Care Manager Provider Instructions: Please hold your lasix and entresto for this evening. You may resume these medications starting tomorrow morning. Please have repeat BMP (basic metabolic panel) lab drawn on Wednesday. Continue regular home dose of warfarin. You should also have your INR rechecked on Wednesday. Follow up with your primary care provider within the next 3-5 days. Pending Studies at Discharge: No Stand-Alone Forms: My [facility], Opioid Pain Management Medications and DC Order Prescriptions: New oxycodone 5 mg tablet 5 mg PO Q4H MDD 6 PRN (Reason: pain) Qty: 30 RF: 0 acetaminophen [Tylenol Extra Strength] 500 mg Tablet 1,000 mg PO Q8 Qty: 60 RF: 0 Continued warfarin [Coumadin] 2 mg tablet 2 mg PO DAILY Qty: 30 RF: 2 furosemide 40 mg tablet 40 mg PO QAM RF: 0 Entresto 24-26 mg Tablet 1 tab PO BID RF: 0 metoprolol succinate 100 mg tablet extended release 24 hr 100 mg PO QDL RF: 0 simvastatin 10 mg tablet 10 mg PO HS RF: 0 coenzyme Q10 [Co Q-10] 10 mg capsule 10 mg PO QAM RF: 0 levothyroxine 25 mcg tablet 25 mcg PO QAM RF: 0 pantoprazole 40 mg tablet,delayed release (DR/EC) 40 mg PO QAM RF: 0 docusate sodium [Stool Softener] 100 mg capsule 100 mg PO UD PRN (Reason: Constipation) RF: 0 Discharge Orders: Discharge Order (Routine); Ordered 01/07/19 Ordered By: Lexa Maddox/Other Patient Handouts: Surgery Prevent DVT After, Coumadin Admission Data Admit Date/Time: 01/05/19 14:36 Attending Provider: Arnoldo Paez Admit Provider: Arnoldo Paez Primary Care Provider: Aissatou Martinez Other Providers: [facility],Home Health Other Interventions: Discharge Summary Assessment (RN) Last Done: 01/07/19 14:32 DC Date/Time DO NOT enter until pt leaves facility: 01/07/19 16:39
== END 2019-01-07 16:39 | disposition home health service (06) | DRG 470 ==
LOC: ASU 09:31 → 3E 14:36